=== PATIENT | female | born 1995 | race African-American/Black ===

== ENCOUNTER 2019-04-03 16:40 | Emergency (ER) | payer MEDICAID, OTHER ==
[~2019-04-03] VITALS: Ht 165.1 cm; Wt 68.0 kg
[2019-04-03 19:32] LABS: BASOPHILS % 0.4 % (0.0-2.0); EOSINOPHILS % 2.1 % (0.0-5.0); HEMATOCRIT. 40.8 % (36.0-48.0); HEMOGLOBIN. 13.6 g/dL (12.0-16.0); LYMPHOCYTES % 26.4 % (20.0-50.0); MEAN CORPUSCULAR HEMOGLOBIN 31.2 pg (28.0-32.0); MEAN CORPUSCULAR VOLUME 93.1 fL (81.0-99.0); MEAN PLATELET VOLUME 7.5 fl (7.4-10.4); NEUTROPHILS % 65.1 % (40.0-76.0); PLATELET 286 x1000/uL (130-400); RED BLOOD CELL COUNT 4.38 mill/uL (4.2-5.4); RED CELL DISTRIBUTION WIDTH 13.1 % (11.6-14.6)
[2019-04-03 19:35] LABS: CHLORIDE 106 mEq/L (98-107)
[2019-04-03 19:39] LABS: ETHANOL BLOOD < 10 mg/dL
[2019-04-03 20:32] LABS: CLARITY URINE CLEAR (CLEAR); COLOR URINE YELLOW (YELLOW); KETONES URINE 2+ (NEGATIVE); LEUKOCYTE ESTERASE URINE NEGATIVE (NEGATIVE); NITRITE URINE NEGATIVE (NEGATIVE); OCCULT BLOOD URINE NEGATIVE (NEGATIVE); PH URINE 5.5 (4.5-8.0); PROTEIN URINE NEGATIVE (NEGATIVE)
[2019-04-03 20:53] LABS: *AMPHETAMINES SCREEN URINE NEGATIVE (NEGATIVE); *BARBITURATES SCREEN URINE NEGATIVE (NEGATIVE); *BENZODIAZEPINES SCREEN URINE NEGATIVE (NEGATIVE)
[2019-04-03 20:54] LABS: *COCAINE SCREEN URINE NEGATIVE (NEGATIVE); CANNABINOID URINE SCREEN NEGATIVE (NEGATIVE); METHADONE URINE SCREEN NEGATIVE (NEGATIVE); OPIATES URINE SCREEN NEGATIVE (NEGATIVE); PHENCYCLIDINE URINE SCREEN NEGATIVE (NEGATIVE)
[2019-04-05 16:30] VITALS: BP 102/70
== END 2019-04-05 16:45 | disposition home or self-care (01) ==
LOC: ER 16:40
DX: R45.851 Suicidal ideations (principal); F32.9 Major depressive disorder, single episode, unspecified
CPT/HCPCS: 36415; 80305; 80307; 80320; 80329; 81003; 81025; 93005; 99284; G0480

== ENCOUNTER 2019-08-23 18:30 | Emergency (ER) | payer MEDICAID ==
[~2019-08-23] VITALS: Ht 160 cm; Wt 73.0 kg
[2019-08-23] MEDS ORDERED: LORAZEPAM 2MG/ML CPJ IV STA (21:13)
[2019-08-23] MEDS ORDERED: HALOPERIDOL LACTATE 5MG/ML VIAL IM STA ×2 (21:13→21:31)
[2019-08-23] MEDS ORDERED: OLANZAPINE 5MG TABLET ODT ONE (21:33)
[2019-08-23] MEDS: OLANZAPINE 10MG TABLET PO SCH ×2 (21:35→21:54)
[2019-08-23 22:15] LABS: CHLORIDE 108 mEq/L (98-107)
[2019-08-23 22:19] LABS: ETHANOL BLOOD < 10 mg/dL
[2019-08-23 22:25] LABS: VALPROIC ACID < 3.0 ug/mL (50-100)
[2019-08-23 22:36] LABS: CLARITY URINE CLEAR (CLEAR); COLOR URINE YELLOW (YELLOW); KETONES URINE NEGATIVE (NEGATIVE); LEUKOCYTE ESTERASE URINE NEGATIVE (NEGATIVE); NITRITE URINE NEGATIVE (NEGATIVE); OCCULT BLOOD URINE NEGATIVE (NEGATIVE); PH URINE 6.5 (4.5-8.0); PROTEIN URINE NEGATIVE (NEGATIVE); SPECIFIC GRAVITY URINE 1.017 (1.005-1.030)
[2019-08-23 22:45] LABS: BASOPHILS % 0.8 % (0.0-2.0); EOSINOPHILS % 4.4 % (0.0-5.0); HEMATOCRIT. 34.8 % (36.0-48.0); HEMOGLOBIN. 11.7 g/dL (12.0-16.0); LYMPHOCYTES % 29.1 % (20.0-50.0); MEAN CORPUSCULAR HEMOGLOBIN 30.7 pg (28.0-32.0); MEAN CORPUSCULAR VOLUME 91.4 fL (81.0-99.0); MEAN PLATELET VOLUME 7.3 fl (7.4-10.4); MONOCYTES % 7.5 % (2.0-8.0); NEUTROPHILS % 58.2 % (40.0-76.0); PLATELET 362 x1000/uL (130-400); RED BLOOD CELL COUNT 3.81 mill/uL (4.2-5.4); RED CELL DISTRIBUTION WIDTH 13.3 % (11.6-14.6)
[2019-08-23 22:55] LABS: *AMPHETAMINES SCREEN URINE NEGATIVE (NEGATIVE); *BARBITURATES SCREEN URINE NEGATIVE (NEGATIVE); *BENZODIAZEPINES SCREEN URINE NEGATIVE (NEGATIVE)
[2019-08-23 22:56] LABS: *COCAINE SCREEN URINE NEGATIVE (NEGATIVE); CANNABINOID URINE SCREEN NEGATIVE (NEGATIVE); METHADONE URINE SCREEN NEGATIVE (NEGATIVE); OPIATES URINE SCREEN NEGATIVE (NEGATIVE); PHENCYCLIDINE URINE SCREEN NEGATIVE (NEGATIVE)
[2019-08-24 12:20] VITALS: BP 90/50
== END 2019-08-24 17:54 | disposition left against medical advice (07) ==
LOC: ER 18:30
DX: F32.9 Major depressive disorder, single episode, unspecified (principal); F20.9 Schizophrenia, unspecified; F17.200 Nicotine dependence, unspecified, uncomplicated; R45.851 Suicidal ideations
CPT/HCPCS: 36415; 80053; 80165; 80305; 80307; 80320; 80329; 81003; 81025; 85025; 96372; 96374; 99284; J1630; J2060; G0480

== ENCOUNTER 2020-07-16 05:24 | Emergency (ER) | payer MEDICAID ==
[~2020-07-16] VITALS: Ht 160 cm; Wt 73.0 kg
[2020-07-16 05:37] VITALS: BP 116/64
[2020-07-16 09:09] LABS: CHLORIDE 106 mEq/L (98-107)
[2020-07-16 09:13] LABS: ETHANOL BLOOD < 10 mg/dL
[2020-07-16 09:22] LABS: HCG SCREEN NEGATIVE
[2020-07-16 09:23] LABS: BASOPHILS % 0.3 % (0.0-2.0); EOSINOPHILS % 3.4 % (0.0-5.0); HEMATOCRIT. 39.7 % (36.0-48.0); HEMOGLOBIN. 13.6 g/dL (12.0-16.0); LYMPHOCYTES % 26.9 % (20.0-50.0); MEAN CORPUSCULAR HEMOGLOBIN 30.7 pg (28.0-32.0); MEAN CORPUSCULAR VOLUME 89.6 fL (81.0-99.0); MONOCYTES % 4.9 % (2.0-8.0); NEUTROPHILS % 64.5 % (40.0-76.0); PLATELET 387 x1000/uL (130-400); RED BLOOD CELL COUNT 4.43 mill/uL (4.2-5.4); RED CELL DISTRIBUTION WIDTH 12.3 % (11.6-14.6)
== END 2020-07-16 10:51 | disposition left against medical advice (07) ==
LOC: ER 05:24
DX: F32.9 Major depressive disorder, single episode, unspecified (principal); R45.851 Suicidal ideations; F20.9 Schizophrenia, unspecified
CPT/HCPCS: 36415; 80053; 80307; 80320; 80329; 84703; 85025; 93005; 99284; G0480